=== PATIENT | female | born 1950 | race Caucasian/White ===

== ENCOUNTER 2017-08-11 23:17 | Emergency (ER) | payer OTHER, MEDICAID ==
[~2017-08-11] VITALS: Ht 165.1 cm; Wt 79.4 kg
[2017-08-11 23:17] VITALS: BP_SYST 156
[~2017-08-11 23:17] MED LIST: ASPI81TA2 PO; EZET1TAB35; FERR256T PO; FLUT16SP16 NS; LEVO250T20 PO; LIRA0.6P2 SQ; LORA10TA7 PO; LOSA50TA3 PO; RAMI5CAP35; STA120; [UNRECOGNIZED DRUG - OTHER]
[2017-08-11 23:40] VITALS: BP_SYST 136
== END 2017-08-11 23:40 | disposition home or self-care (01) ==
LOC: SED 23:17
DX: T81.89XA Other complications of procedures, not elsewhere classified, initial encounter (principal); I25.2 Old myocardial infarction; E11.9 Type 2 diabetes mellitus without complications; Z98.84 Bariatric surgery status; Z79.82 Long term (current) use of aspirin; Z79.899 Other long term (current) drug therapy; Y82.8 Other medical devices associated with adverse incidents; Y92.89 Other specified places as the place of occurrence of the external cause
CPT/HCPCS: 99281